=== PATIENT | female | born 1955 | race Caucasian/White ===

== ENCOUNTER 2024-06-20 10:10 | Emergency (ER) | payer MEDICARE, OTHER ==
--- NOTE | 2024-06-20 10:47 | ED Physician Documentation ---
PD HPI ABD PAIN - Stated complaint Stated Complaint: ABD PX,DIZZINESS - Chief complaint Chief Complaint: Abd Pain - History obtained from History obtained from: Patient - History of Present Illness Timing - onset: Today, Last night (onset in evening of right upper abd pain that increased signficantly this morning with radiation to the back.) Timing - details: Gradual onset, Still present (increased significantly the past few hours.), Constant Quality: Cramping, Aching, Pain Location: RUQ, RLQ Radiation: Lower back, Right flank Improved by: Laying still Worsened by: Moving, Breathing, Palpation Associated symptoms: Nausea, Hematochezia (had noted red blood per rectum with BMs the past couple of months intermittently.). No: Fever, Vomiting, Diarrhea Similar symptoms before: No diagnosis Recently seen: Clinic (Had had red blood per rectum presumed hemorrhoids month or more ago. Referred to GI who put her on fiber and MiraLAX to be more regular in her stools. Plan follow-up in a couple of weeks with discussion about colonoscopy.) Review of Systems Constitutional: denies: Fever, Chills Nose: denies: Congestion Throat: denies: Sore throat Respiratory: denies: Cough GI: reports: Abdominal Pain, Bloody / black stool (for couple months intermittently red blood after BMs with some discomfort there.) PD PAST MEDICAL HISTORY - Past Medical History Cardiovascular: None Respiratory: None Neuro: None Endocrine/Autoimmune: None Other Past Medical History: Mitral valve prolapse - Past Surgical History /[employer]: Hysterectomy HEENT: Tonsil/Adenoidectomy - Present Medications Home Medications: Ambulatory Orders Medication Instructions Recorded Confirmed Hydrocodone/Acetaminophen 1 each PO Q6HR 06/20/24 06/20/24 [Hydrocodone-Acetamin 5-300 mg] Ondansetron HCl 4 mg SL Q6HR 06/20/24 06/20/24 - Allergies Allergies/Adverse Reactions: Allergies Allergy/AdvReac Type Severity Reaction Status Date / Time Penicillins Allergy Rash Verified 06/20/24 10:29 - Social History Does the pt smoke?: No Smoking Status: Never smoker Does the pt drink ETOH?: No Does the pt have substance abuse?: No - Immunizations Immunizations are current?: Yes - POLST Patient has POLST: No PD ED PE NORMAL - Vitals Vital signs reviewed: Yes - General General: Alert and oriented X 3, Well developed/nourished, Other (appears in signficant pain. ) - Neck Neck: Supple, no meningeal sign, No adenopathy - Cardiac Cardiac: No murmur. No: RRR (tachycardic) - Respiratory Respiratory: No respiratory distress, Clear bilaterally - Abdomen Abdomen: Soft, Non distended, Other (markedly tender RUQ and right side abd in general with guarding and percussion/rebound tenderness. Left minimally tender. ). No: Normal bowel sounds (diminished) - Derm Derm: Warm and dry. No: Normal color (pale) - Extremities Extremities: Normal ROM s pain, No edema - Neuro Neuro: Alert and oriented X 3, No motor deficit, Normal speech Eye Opening: Spontaneous Motor: Obeys Commands Verbal: Oriented GCS Score: 15 Results - Vitals Vitals: Vital Signs - 24 hr 06/20/24 06/20/24 06/20/24 10:21 12:38 14:00 Temperature 36.6 C Heart Rate 113 H 89 81 Respiratory 20 16 18 Rate Blood Pressure 118/72 134/69 H 127/69 O2 Saturation 96 92 95 06/20/24 06/20/24 16:00 16:42 Temperature 36.6 C Heart Rate 80 92 Respiratory 17 20 Rate Blood Pressure 133/70 H 125/68 O2 Saturation 94 96 Oxygen O2 Source Room air - Labs Labs: Laboratory Tests 06/20/24 06/20/24 06/20/24 10:53 10:53 12:39 WBC 22.2 H RBC 4.32 Hgb 12.2 Hct 39.3 MCV 91.0 MCH 28.2 MCHC 31.0 L RDW 13.2 Plt Count 683 H MPV 9.3 Neut # (Auto) 20.0 H Lymph # (Auto) 1.0 L Ellis # (Auto) 1.1 H Eos # (Auto) 0.0 Baso # (Auto) 0.1 Absolute Nucleated RBC 0.00 Nucleated RBC % 0.0 Manual Slide Review Indicated RBC Morph Micro Appear 2+ ANISOCYTOSIS Sodium 133 L Potassium 3.8 Chloride 97 L Carbon Dioxide 27 Anion Gap 9.0 BUN 24 H Creatinine 0.8 Estimated GFR (MDRD) 72 L Glucose 165 H Calcium 11.1 H Total Bilirubin 1.3 H AST 157 H ALT 168 H Alkaline Phosphatase 512 H Total Protein 6.8 Albumin 3.6 Globulin 3.2 Albumin/Globulin Ratio 1.1 Lipase 19 Urine Color DARK YELLOW Urine Clarity CLEAR Urine pH 6.0 Ur Specific [place] >=1.030 H Urine Protein NEGATIVE Urine Glucose (UA) NEGATIVE Urine Ketones TRACE Urine Occult Blood NEGATIVE Urine Nitrite NEGATIVE Urine Bilirubin NEGATIVE Urine Urobilinogen 1 (NORMAL) Ur Leukocyte Esterase NEGATIVE Ur Microscopic Review NOT INDICATED Urine Culture Comments NOT INDICATED Blood Type Blood Type Recheck Antibody Screen 06/20/24 06/20/24 06/20/24 14:05 14:10 14:30 WBC RBC Hgb 10.7 L Hct 33.6 L MCV MCH MCHC RDW Plt Count MPV Neut # (Auto) Lymph # (Auto) Ellis # (Auto) Eos # (Auto) Baso # (Auto) Absolute Nucleated RBC Nucleated RBC % Manual Slide Review RBC Morph Micro Appear Sodium Potassium Chloride Carbon Dioxide Anion Gap BUN Creatinine Estimated GFR (MDRD) Glucose Calcium Total Bilirubin AST ALT Alkaline Phosphatase Total Protein Albumin Globulin Albumin/Globulin Ratio Lipase Urine Color Urine Clarity Urine pH Ur Specific [place] Urine Protein Urine Glucose (UA) Urine Ketones Urine Occult Blood Urine Nitrite Urine Bilirubin Urine Urobilinogen Ur Leukocyte Esterase Ur Microscopic Review Urine Culture Comments Blood Type A NEGATIVE Blood Type Recheck A NEGATIVE Antibody Screen NEGATIVE 06/20/24 16:28 WBC RBC Hgb 10.5 L Hct 32.6 L MCV MCH MCHC RDW Plt Count MPV Neut # (Auto) Lymph # (Auto) Ellis # (Auto) Eos # (Auto) Baso # (Auto) Absolute Nucleated RBC Nucleated RBC % Manual Slide Review RBC Morph Micro Appear Sodium Potassium Chloride Carbon Dioxide Anion Gap BUN Creatinine Estimated GFR (MDRD) Glucose Calcium Total Bilirubin AST ALT Alkaline Phosphatase Total Protein Albumin Globulin Albumin/Globulin Ratio Lipase Urine Color Urine Clarity Urine pH Ur Specific [place] Urine Protein Urine Glucose (UA) Urine Ketones Urine Occult Blood Urine Nitrite Urine Bilirubin Urine Urobilinogen Ur Leukocyte Esterase Ur Microscopic Review Urine Culture Comments Blood Type Blood Type Recheck Antibody Screen PD Medical Decision Making - ED course Complexity details: reviewed results, considered differential (Abrupt onset of right upper quadrant abdominal pain. Consider common abnormalities such as biliary colic, gallstones, cholangitis, bile duct obstruction, pancreatitis, ulcer, among other things. Will check with labs and CT scan. Give patient IV fluids and antiemetic and pain medicines.), d/w patient Reviewed Lab Results: The patient does have an elevated white count of 22,000 with a hemoglobin of 12.1. Initial chemistry panel is showing elevated liver enzymes with a normal lipase. Alk phos is also elevated. The patient CT scan on initial view is showing likely lesion in the rectal area with some inflammation but extensive liver masses consistent with severe metastatic disease. There is some capsular fluid noted on the superior aspect. Mild free fluid. This was corroborated by the initial radiology report. ED course: the patient with right upper abd pain found due to acute erosion of liver mass/mets through liver capsule with subcapsular hematoma and then leak of that to peritoneum with intraperitoneal hemorrhage. Volume is not too large at this time. Blood count is 12.2 with repeat 10.7 at about 2 hours. Was given some IV flui but still represents ongoing blood loss. Given IV fluids, pain meds, toradol initially. Given Rocephin IV with initial WBC 22K and elevated LFTs and degree of pain for concern of cholangitis prior to the CT. More pain med as needed and then TXA 1 g IV when I viewed the hematoma/bleeding. No call from Radiologist but report resulted with above findings as well. The patient findings and problem are well above our level of care, presume needing IR or more extensive surgery and we also do not currently have ICU beds. Transfer arranged to [facility] and I talked with the trauma/general surgeon, who accepted ER to ER. Pt remained normotensive during the ER stay here. 2 IVs access. IV fluids and meds without problems. Transfer via [facility]. 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
[2024-06-20 11:01] LABS: BASOPHILS # (AUTO) 0.1 10^3/uL (0.0-0.1); BASOPHILS % (AUTO) 0.3 %; HCT - HEMATOCRIT 39.3 % (37.0-47.0); HGB - HEMOGLOBIN 12.2 g/dL (12.0-16.0); LYMPHOCYTES % (AUTO) 4.3 %; MEAN CORPUSCULAR HEMOGLOBIN 28.2 pg (27.0-31.0); MEAN PLATELET VOLUME 9.3 fL (7.9-10.8); MONOCYTES # (AUTO) 1.1 10^3/uL (0.0-1.0); MONOCYTES % (AUTO) 4.8 %; PLT - PLATELET COUNT 683 10^3/uL (130-450); RED BLOOD COUNT 4.32 10^6/uL (4.20-5.40); RED CELL DISTRIBUTION WIDTH 13.2 % (12.0-15.0); WHITE BLOOD COUNT 22.2 x10^3/uL (4.8-10.8)
[2024-06-20 11:04] LABS: SLIDE REVIEW? Indicated
[2024-06-20 11:14] LABS: ALBUMIN 3.6 g/dL (3.2-5.5); ALBUMIN/GLOBULIN RATIO 1.1 (1.0-2.2); BILIRUBIN,TOTAL 1.3 mg/dL (0.2-1.0); CALCIUM 11.1 mg/dL (8.5-10.3); CREATININE 0.8 mg/dL (0.6-1.3); POTASSIUM 3.8 mmol/L (3.5-4.5); TOTAL PROTEIN 6.8 g/dL (6.4-8.9)
[2024-06-20 11:28] LABS: RBC MORPHOLOGY (MULTIPLE) 2+ ANISOCYTOSIS (NORMAL)
[2024-06-20] MEDS ORDERED: iohexoL-300 100 ML VIAL ONE ×2 (11:45→12:21)
[2024-06-20] MEDS: ONDANSETRON 4 MG/2 ML VIAL IVP STA ×2 (12:21→15:54)
[2024-06-20] MEDS: HYDROmorphone 1 MG/ML CARPUJECT IVP STA ×2 (12:22→15:55)
[2024-06-20] MEDS: KETOROLAC 15 MG/ML VIAL IVP STA (12:22)
[2024-06-20] MEDS: SODIUM CHLORIDE 0.9% 1,000 ML IV STA ×2 (12:39→14:26)
[2024-06-20] MEDS: cefTRIAXone 1 GM VIAL IVP STA (12:39)
[2024-06-20 12:46] LABS: BILIRUBIN,URINE NEGATIVE (NEGATIVE); GLUCOSE, URINE (UA) NEGATIVE (NEGATIVE); KETONES,URINE (UA) TRACE mg/dL (NEGATIVE); LEUKOCYTE ESTERASE, URINE NEGATIVE (NEGATIVE); NITRITE,URINE NEGATIVE (NEGATIVE); OCCULT BLOOD,URINE NEGATIVE (NEGATIVE); PROTEIN,URINE NEGATIVE (NEGATIVE); UROBILINOGEN,URINE 1 (NORMAL) E.U./dL (NORMAL)
[2024-06-20 12:49] LABS: CLARITY,URINE CLEAR (CLEAR)
--- NOTE | 2024-06-20 13:37 | CT Report ---
PROCEDURE: Abdomen/Pelvis W INDICATIONS: RUQ abd pain since last night CONTRAST: Omni 300 100ml TECHNIQUE: After the administration of intravenous contrast, a CT scan of the abdomen and pelvis was performed. Images were recorded and evaluated at appropriate window settings. Reformats: coronal and sagittal. F or radiation dose reduction, the following was used: automated exposure control, adjustment of mA and /or kV according to patient size. COMPARISON: None. FINDINGS: Image quality: Diagnostic. Lower chest: Unremarkable. Liver: Extensive metastatic disease replaces much of the liver. Findings include a lesion anteriorly in the right lobe which extends outside of the liver capsule with associated subcapsular hematoma and peritoneal hemorrhage. Blood extends along the right paracolic gutter inferiorly. There is also a he morrhagic lesion involving the anterior surface of the left lobe. Gallbladder: No radiopaque stones or wall thickening. Biliary tree: No intrahepatic or extrahepatic dilation, accounting for age. Spleen: No splenomegaly. Pancreas: No pancreatic ductal dilation. Adrenals: No adrenal nodule. Kidneys and ureters: No hydronephrosis. No renal cystic lesion which requires follow up. No solid mas s. Stomach, bowel and peritoneum: Suspect rectal primary with extensive spread into the perirectal fat. There is mild pelvic ascites. Lymph nodes: Extensive left para-aortic lymphadenopathy in left iliac adenopathy and pelvic sidewall adenopathy.. Vessels: No infrarenal aortic aneurysm. Patent portal vein. PELVIS Reproductive organs: Unremarkable. Bladder: No abnormal wall thickening, accounting for underdistention. Pelvic lymph nodes: No pelvic adenopathy by size criteria. Bones: No aggressive osseous abnormality. Other: Malignant, quite enlarged left inguinal adenopathy. There is probably also malignant right ing uinal adenopathy. IMPRESSION: 1. Extensive liver metastatic disease. 2. Findings include ruptured through the capsule of a right lobe lesion with associated subcapsular h ematoma and peritoneal hemorrhage. 3. Suspect locally advanced primary rectal carcinoma with extensive perirectal spread. 4. There is malignant adenopathy in the left inguinal region and left pelvic sidewall. There is exten sive left periaortic retroperitoneal adenopathy and left iliac adenopathy. Reviewed by: Stephan Saucedo MD on 06/20/2024 1:35 PM PDT Approved by: Stephan Saucedo MD on 06/20/2024 1:35 PM PDT Station ID: [id number]
[2024-06-20] MEDS: iohexoL-300 100 ML VIAL IVP ONE (14:19)
[2024-06-20] MEDS: TRANEXAMIC ACID IN NACL 1,000 MG/100 ML BAG IV STA (14:26)
[2024-06-20 14:33] LABS: HCT - HEMATOCRIT 33.6 % (37.0-47.0); HGB - HEMOGLOBIN 10.7 g/dL (12.0-16.0)
[2024-06-20 16:34] LABS: HCT - HEMATOCRIT 32.6 % (37.0-47.0); HGB - HEMOGLOBIN 10.5 g/dL (12.0-16.0)
[2024-06-20 16:52] VITALS: BP 125/68; O2SAT 96
== END 2024-06-20 16:53 | disposition short-term general hospital (02) ==
LOC: ED 10:10
DX: C20 Malignant neoplasm of rectum (principal); C78.7 Secondary malignant neoplasm of liver and intrahepatic bile duct; K76.89 Other specified diseases of liver; K66.1 Hemoperitoneum
CPT/HCPCS: 36415; 51701; 74177; 80053; 81003; 83690; 85014; 85018; 85025; 86850; 86900; 86901; 96361; 96365; 96375; 96376; 99291; 99292; J1170; Q9967; 81001; 87086